=== PATIENT | female | born 1975 | race Caucasian/White ===

== ENCOUNTER → 2016-09-29 | Outpatient (CLI) | payer OTHER ==
[~2016-09-29] MED LIST: ACET-2321 PO; ASPI81TA2 PO; ATEN25TA PO; CLON0.5T PO; DULO60CA56 PO; IBUP200C62 PO; ROSU20TA23 PO
[2016-09-29 11:45] LABS: ALBUMIN 4.6 G/DL (3.5-5.0); ALBUMIN/GLOBULIN RATIO 1.3 RATIO (1.1-2.2); ALKALINE PHOSPHATASE 51 U/L (38-126); ALT (SGPT) 48 U/L (9-52); ANION GAP 13 MEQ/L (5-15); AST (SGOT) 91 U/L (14-36); BUN/CREATININE RATIO 13 RATIO (6-26); CALCIUM 9.5 MG/DL (8.4-10.2); CHLORIDE 106 MEQ/L (98-107); CO2 - CARBON DIOXIDE 27 MEQ/L (22-30); CREATININE 0.8 MG/DL (0.7-1.2); GLOMERULAR FILTRATION RATE 79; GLUCOSE 102 MG/DL (65-110); POTASSIUM 4.4 MEQ/L (3.6-5); SODIUM 146 MEQ/L (134-144); TOTAL PROTEIN 8.2 G/DL (6.3-8.2)
[2016-09-29 17:37] LABS: CK - CPK 98 U/L (30-135)
[2016-10-03 00:51] LABS: RISK FACTOR 3.2 RATIO (0-4.0)
== END ==
LOC: LAB 11:13
PROVIDERS: ATTEND Family Medicine
DX: D23.10 Other benign neoplasm of skin of unspecified eyelid, including canthus (principal); E78.5 Hyperlipidemia, unspecified
CPT/HCPCS: 36415; 80053; 80061; 82550